=== PATIENT | male | born 2000 | race Caucasian/White ===

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

== ENCOUNTER → 2023-09-15 | Outpatient (CLI) | payer BC ==
--- NOTE | 2023-09-15 09:40 | CT ---
EXAMINATION TYPE: CT shoulder LT wo con DATE OF EXAM: 09/15/2023 COMPARISON: None HISTORY: pt states he has pain and clicking in his left shoulder, no injury CT DLP: 702.8 mGycm Automated exposure control for dose reduction was used. FINDINGS: A sclerotic density involving the humeral head is suggestive of a bone island. AC joint appears to be maintained. Visualized lung field is clear. Visualized clavicle intact. There is no evidence of acut e fracture or dislocation. There is a bony deformity involving the posterior margin of the scapula co uld represent an intraosseous lesion such as osteochondroma. IMPRESSION: DEFORMITY INVOLVING THE POSTERIOR MARGIN OF THE BODY OF THE SCAPULA MAY REPRESENT AN INTRAOSSEOUS LES ION SUCH OSTEOCHONDROMA\CHONDROID LESION. RECOMMEND MRI FOR FURTHER EVALUATION.
== END | disposition home or self-care (01) ==
LOC: RADCTMAIN 08:14
PROVIDERS: ATTEND Orthopaedic Surgery Hand Surgery
DX: M21.922 Unspecified acquired deformity of left upper arm (principal); D16.02 Benign neoplasm of scapula and long bones of left upper limb